=== PATIENT | male | born 1980 | race Two or more races ===

== ENCOUNTER 2021-01-25 19:05 | Outpatient (CLI) | payer OTHER | END 2021-01-25 19:06 | disposition critical access hospital (66) | LOC: EMS 19:05 | DX: R55 Syncope and collapse (principal); R07.9 Chest pain, unspecified | CPT/HCPCS: A0425; A0429 ==

== ENCOUNTER 2021-01-25 19:16 | Emergency (ER) | payer OTHER ==
[2021-01-25 20:08] LABS: BASOPHILS # (AUTO) 0.1 10^3/uL (0.0-0.1); BASOPHILS % (AUTO) 0.8 %; EOSINOPHILS # (AUTO) 0.2 10^3/uL (0.0-0.7); EOSINOPHILS % (AUTO) 2.9 %; HCT - HEMATOCRIT 42.2 % (42.0-52.0); HGB - HEMOGLOBIN 14.4 g/dL (14.0-18.0); LYMPHOCYTES # (AUTO) 2.3 10^3/uL (1.5-3.5); LYMPHOCYTES % (AUTO) 30.5 %; MEAN CORPUSCULAR HEMOGLOBIN 29.7 pg (27.0-31.0); MEAN CORPUSCULAR HGB CONC 34.1 g/dL (32.0-36.0); MEAN PLATELET VOLUME 10.6 fL (7.4-11.4); MONOCYTES # (AUTO) 0.7 10^3/uL (0.0-1.0); NEUTROPHILS # (AUTO) 4.3 10^3/uL (1.5-6.6); NEUTROPHILS % (AUTO) 56.5 %; PLT - PLATELET COUNT 178 10^3/uL (130-450); RED BLOOD COUNT 4.85 10^6/uL (4.70-6.10); RED CELL DISTRIBUTION WIDTH 12.1 % (12.0-15.0); WHITE BLOOD COUNT 7.6 x10^3/uL (4.8-10.8)
[2021-01-25] MEDS ORDERED: SODIUM CHLORIDE 0.9% 1,000 ML IV STA (20:19)
[2021-01-25] MEDS ORDERED: ONDANSETRON 4 MG/2 ML VIAL IVP STA (20:19)
[2021-01-25 20:26] LABS: ALBUMIN 4.4 g/dL (3.2-5.5); ALBUMIN/GLOBULIN RATIO 1.5 (1.0-2.2); BILIRUBIN,TOTAL 2.2 mg/dL (0.2-1.0); CALCIUM 8.9 mg/dL (8.5-10.3); POTASSIUM 3.8 mmol/L (3.5-5.0); TOTAL PROTEIN 7.3 g/dL (6.7-8.2)
--- NOTE | 2021-01-25 20:37 | XRAY Report ---
PROCEDURE: Chest 1 View X-Ray INDICATIONS: Chest pain TECHNIQUE: One view of the chest was acquired. COMPARISON: None FINDINGS: Surgical changes and devices: None. Lungs and pleura: No pleural effusions or pneumothorax. Lungs are clear. Mediastinum: Mediastinal contours appear normal. Heart size is at the upper limits of normal. Bones and chest wall: No suspicious bony lesions. Overlying soft tissues appear unremarkable. IMPRESSION: No acute pulmonary process. Reviewed by: Jaquelin Fernando MD on 01/25/2021 8:36 PM PDT Approved by: Jaquelin Fernando MD on 01/25/2021 8:36 PM PDT Station ID: [id number]
--- NOTE | 2021-01-25 21:41 | ED Physician Documentation ---
PD HPI CHEST PAIN - Stated complaint Stated Complaint: CP/ LIGHTHEADED/ DIZZY - Chief complaint Chief Complaint: Cardiac - History obtained from History obtained from: Patient - History of Present Illness Timing - onset: How many months ago (has had episodic chest pain, mostly associated with times of feeling stressed, for several months, even up to 9 months. More frequent the past month or so. today had feeling of chest pressure again but associated with it was nausea and lightheaded, which is not usual.) Timing - onset during: Light activity, Emotional event (not even upset really, just with feeling stress). No: Sleep, Rest Timing - duration: Minutes, Hours Timing - details: Gradual onset, Still present, Waxing and waning Quality: Tightness Location: Substernal Improved by: No: Rest Worsened by: No: Exertion, Inspiration, Eating, Movement Associated symptoms: Nausea, Feeling faint / dizzy. No: Shortness of air, Palpitations, Cough Similar symptoms before: No diagnosis Recently seen: Not recently seen Review of Systems Constitutional: denies: Fever, Chills Nose: denies: Rhinorrhea / runny nose, Congestion Throat: denies: Sore throat Respiratory: denies: Cough GI: reports: Nausea (today). denies: Abdominal Pain, Vomiting, Constipation, Diarrhea Neurologic: denies: Generalized weakness, Near syncope Psychiatric: reports: Anxiety. denies: Depressed, Insomnia (he says he sleeps well and does not snore much, was screened for CPAP with sleep study and did not need one.) PD PAST MEDICAL HISTORY - Past Medical History Cardiovascular: None Respiratory: None Neuro: None Endocrine/Autoimmune: None - Present Medications Home Medications: Ambulatory Orders Medication Instructions Recorded Confirmed Allopurinol [Zyloprim] 300 mg PO DAILY 01/25/21 01/25/21 - Allergies Allergies/Adverse Reactions: Allergies Allergy/AdvReac Type Severity Reaction Status Date / Time No Known Drug Allergies Allergy Verified 01/25/21 19:40 - Living Situation Living Situation: reports: With spouse/s.o. Living Arrangement: reports: At home - Social History Does the pt smoke?: No ETOH Use: Other (occasional) Does the pt have substance abuse?: No - Family History Family history: reports: CAD. denies: Sudden PD ED PE NORMAL - Vitals Vital signs reviewed: Yes - General General: Alert and oriented X 3, No acute distress, Well developed/nourished - HEENT HEENT: Moist mucous membranes - Neck Neck: Supple, no meningeal sign, Thyroid normal - Cardiac Cardiac: RRR, No murmur, No rub - Respiratory Respiratory: Clear bilaterally, Other (no chestwall tenderness) - Abdomen Abdomen: Soft, Non tender - Derm Derm: Normal color, Warm and dry - Extremities Extremities: Normal ROM s pain, No edema, No calf tenderness / cord - Neuro Neuro: Alert and oriented X 3, No motor deficit, Normal speech - Psych Psych: Normal mood, Normal affect Results - Vitals Vitals: Vital Signs - 24 hr 01/25/21 01/25/21 19:20 21:41 Temperature 36.5 C Heart Rate 77 74 Respiratory 16 16 Rate Blood Pressure 120/77 120/74 O2 Saturation 98 98 Oxygen O2 Source Room air - EKG (time done) 19:26 Rate: Rate (enter#) (78) Rhythm: NSR [place]: Normal Intervals: Normal RI QRS: Normal Ischemia: Normal ST segments. No: ST elevation c/w ischemia, ST depression - Labs Labs: Laboratory Tests 01/25/21 01/25/21 01/25/21 20:03 20:03 20:03 WBC 7.6 RBC 4.85 Hgb 14.4 Hct 42.2 MCV 87.0 MCH 29.7 MCHC 34.1 RDW 12.1 Plt Count 178 MPV 10.6 Neut # (Auto) 4.3 Lymph # (Auto) 2.3 [place] # (Auto) 0.7 Eos # (Auto) 0.2 Baso # (Auto) 0.1 Absolute Nucleated RBC 0.00 Nucleated RBC % 0.0 Sodium 137 Potassium 3.8 Chloride 101 Carbon Dioxide 27 Anion Gap 9.0 BUN 18 Creatinine 1.0 Estimated GFR (MDRD) 82 L Glucose 95 Calcium 8.9 Total Bilirubin 2.2 H AST 58 H ALT 61 H Alkaline Phosphatase 34 L Troponin I High Sens 3.4 Total Protein 7.3 Albumin 4.4 Globulin 2.9 Albumin/Globulin Ratio 1.5 Lipase 41 TSH 01/25/21 20:03 WBC RBC Hgb Hct MCV MCH MCHC RDW Plt Count MPV Neut # (Auto) Lymph # (Auto) [place] # (Auto) Eos # (Auto) Baso # (Auto) Absolute Nucleated RBC Nucleated RBC % Sodium Potassium Chloride Carbon Dioxide Anion Gap BUN Creatinine Estimated GFR (MDRD) Glucose Calcium Total Bilirubin AST ALT Alkaline Phosphatase Troponin I High Sens Total Protein Albumin Globulin Albumin/Globulin Ratio Lipase TSH 1.24 - Rads (name of study) chest xray Radiology: Prelim report reviewed, See rad report (no acute process) PD MEDICAL DECISION MAKING - ED course Complexity details: considered differential (consider treatment for anxiety/stress but defer to PMD. He has tried some SSRIs in the past with side effects. Defer to PMD for possible stress testing, but has had nonexertional CP episodes for long time. ), d/w patient Departure - Departure Disposition: Home, Self Care Clinical Impression: Chest pressure, Light-headed feeling Condition: Stable Record reviewed to determine appropriate education?: Yes Instructions: ED Chest Pain Atypical Unkn Cause Comments: The cause of your chest tightness. It may be just an anxiety symptom. Currently your EKG, chest x-ray, blood tests including troponin to look for heart injury are all normal. The pattern of your symptoms sound likely stress related. I would follow-up with your primary care and they may consider for completeness to do heart stress test to ensure no flow limitation though your symptoms have not been exertionally related. Also discussed with your primary care other potential treatments for anxiety longer-term. Discharge Date/Time: 01/25/21 21:41
[2021-01-25 22:18] VITALS: BP 120/74
== END 2021-01-25 21:41 | disposition home or self-care (01) ==
LOC: ED 19:16
DX: R07.89 Other chest pain (principal); R42 Dizziness and giddiness; F41.9 Anxiety disorder, unspecified; F43.9 Reaction to severe stress, unspecified
CPT/HCPCS: 36415; 80053; 83690; 84443; 84484; 85025; 93005; 96360; 99284

== ENCOUNTER 2021-01-27 19:47 | Emergency (ER) | payer OTHER ==
[2021-01-27 20:44] LABS: BASOPHILS # (AUTO) 0.1 10^3/uL (0.0-0.1); BASOPHILS % (AUTO) 0.9 %; EOSINOPHILS # (AUTO) 0.3 10^3/uL (0.0-0.7); EOSINOPHILS % (AUTO) 4.3 %; HCT - HEMATOCRIT 46.2 % (42.0-52.0); HGB - HEMOGLOBIN 15.8 g/dL (14.0-18.0); LYMPHOCYTES # (AUTO) 2.7 10^3/uL (1.5-3.5); LYMPHOCYTES % (AUTO) 34.3 %; MEAN CORPUSCULAR HEMOGLOBIN 29.6 pg (27.0-31.0); MEAN CORPUSCULAR HGB CONC 34.2 g/dL (32.0-36.0); MEAN CORPUSCULAR VOLUME 86.7 fL (80.0-94.0); MEAN PLATELET VOLUME 10.8 fL (7.4-11.4); MONOCYTES # (AUTO) 0.6 10^3/uL (0.0-1.0); MONOCYTES % (AUTO) 7.2 %; NEUTROPHILS # (AUTO) 4.1 10^3/uL (1.5-6.6); PLT - PLATELET COUNT 181 10^3/uL (130-450); RED BLOOD COUNT 5.33 10^6/uL (4.70-6.10); RED CELL DISTRIBUTION WIDTH 12.2 % (12.0-15.0); WHITE BLOOD COUNT 7.8 x10^3/uL (4.8-10.8)
[2021-01-27 20:59] LABS: ACETAMINOPHEN < 10 ug/mL (10-30); ALBUMIN 4.6 g/dL (3.2-5.5); ALBUMIN/GLOBULIN RATIO 1.4 (1.0-2.2); ALKALINE PHOSPHATASE 36 IU/L (42-121); ALT ALANINE AMINOTRANSFERASE 61 IU/L (10-60); AST ASPARTATE AMINOTRANSFERASE 57 IU/L (10-42); BILIRUBIN,TOTAL 2.1 mg/dL (0.2-1.0); BUN - BLOOD UREA NITROGEN 13 mg/dL (6-20); CALCIUM 9.2 mg/dL (8.5-10.3); CARBON DIOXIDE - CO2 29 mmol/L (21-32); CHLORIDE 104 mmol/L (101-111); CREATININE 1.1 mg/dL (0.6-1.2); ETOH - ETHANOL 6.3 mg/dL; GFR - MDRD 73 (>89); GLUCOSE 108 mg/dL (70-100); LIPASE 58 U/L (22-51); POTASSIUM 4.4 mmol/L (3.5-5.0); SALICYLATE < 6.0 mg/dL; SODIUM 143 mmol/L (135-145); TOTAL PROTEIN 7.9 g/dL (6.7-8.2)
[2021-01-27 22:01] VITALS: BP 110/78
[2021-01-27 22:14] LABS: MUDS CUTOFF CONCENTRATIONS CUTOFF CONC BELOW:
[2021-01-27 22:17] LABS: BILIRUBIN,URINE NEGATIVE (NEGATIVE); CLARITY,URINE CLEAR (CLEAR); GLUCOSE, URINE (UA) NEGATIVE (NEGATIVE); KETONES,URINE (UA) TRACE mg/dL (NEGATIVE); LEUKOCYTE ESTERASE, URINE NEGATIVE (NEGATIVE); NITRITE,URINE NEGATIVE (NEGATIVE); OCCULT BLOOD,URINE NEGATIVE (NEGATIVE); PROTEIN,URINE NEGATIVE (NEGATIVE); UROBILINOGEN,URINE >=8.0 E.U./dL (NORMAL)
[2021-01-27 22:27] LABS: AMPHETAMINE SCREEN,URINE NEGATIVE (NEGATIVE); BARBITURATE SCREEN,UR NEGATIVE (NEGATIVE); BENZODIAZEPINES SCREEN, URINE NEGATIVE (NEGATIVE); COCAINE SCREEN URINE NEGATIVE (NEGATIVE); METHADONE SCREEN, URINE NEGATIVE (NEGATIVE); METHAMPHETAMINES SCREEN, URINE NEGATIVE (NEGATIVE); OPIATE SCREEN, URINE NEGATIVE (NEGATIVE); OXYCODONE SCREEN, URINE NEGATIVE (NEGATIVE); PROPOXYPHENE SCREEN, URINE NEGATIVE (NEGATIVE); THC CANNABINOID SCREEN, URINE NEGATIVE (NEGATIVE); TRICYCLIC ANTIDEPRESSANT,URINE NEGATIVE (NEGATIVE)
--- NOTE | 2021-01-27 22:28 | ED Physician Documentation ---
PD HPI MHE - Stated complaint Stated Complaint: MHE - Chief complaint Chief Complaint: MHE - History obtained from History obtained from: Patient - History of Present Illness Primary symptom: Depression Recently seen: Clinic, Emergency Dept - Additional information Additional information: seen by PMD earlier today for feelings of depression and anxiety, was prescribed an antidepressant (not sure of name of medication) and took his first dose today at 6 PM. He says he has a counselor, as well, but that he and his were concerned that he is "stuck in a loop" (per patient) of cycles of depression and anxiety and thus he came to ED for further evaluation. He says one of his concerns was how long it might take for him to arrange for outpatient follow up. He denies SI, AH, VH. Review of Systems Cardiac: reports: Reviewed and negative Respiratory: reports: Reviewed and negative GI: reports: Reviewed and negative Psychiatric: reports: Depressed, Anxiety. denies: Suicidal, Homicidal, Hallucinations, Delusions PD PAST MEDICAL HISTORY - Past Medical History Past Medical History: Yes Cardiovascular: None Respiratory: None Neuro: None Endocrine/Autoimmune: None Psych: Depression, Anxiety - Past Surgical History Past Surgical History: No - Present Medications Home Medications: Ambulatory Orders Medication Instructions Recorded Confirmed Allopurinol [Zyloprim] 300 mg PO DAILY 01/25/21 01/27/21 Escitalopram Oxalate [Lexapro] 10 mg PO DAILY 01/27/21 01/27/21 - Allergies Allergies/Adverse Reactions: Allergies Allergy/AdvReac Type Severity Reaction Status Date / Time No Known Drug Allergies Allergy Verified 01/27/21 20:11 - Social History Does the pt smoke?: No Smoking Status: Never smoker Does the pt drink ETOH?: Yes Does the pt have substance abuse?: No - Immunizations Immunizations are current?: Yes PD ED PE NORMAL - Vitals Vital signs reviewed: Yes - General General: Alert and oriented X 3, No acute distress, Well developed/nourished - Cardiac Cardiac: RRR, No murmur - Respiratory Respiratory: No respiratory distress, Clear bilaterally - Neuro Neuro: Alert and oriented X 3 - Psych Psych: Normal mood, Normal affect Results - Vitals Vitals: Oxygen O2 Source Room air - Labs Labs: Laboratory Tests 01/27/21 01/27/21 01/27/21 20:35 20:35 20:35 WBC 7.8 RBC 5.33 Hgb 15.8 Hct 46.2 MCV 86.7 MCH 29.6 MCHC 34.2 RDW 12.2 Plt Count 181 MPV 10.8 Neut # (Auto) 4.1 Lymph # (Auto) 2.7 [place] # (Auto) 0.6 Eos # (Auto) 0.3 Baso # (Auto) 0.1 Absolute Nucleated RBC 0.00 Nucleated RBC % 0.0 Sodium 143 Potassium 4.4 Chloride 104 Carbon Dioxide 29 Anion Gap 10.0 BUN 13 Creatinine 1.1 Estimated GFR (MDRD) 73 L Glucose 108 H Calcium 9.2 Total Bilirubin 2.1 H AST 57 H ALT 61 H Alkaline Phosphatase 36 L Total Protein 7.9 Albumin 4.6 Globulin 3.3 Albumin/Globulin Ratio 1.4 Lipase 58 H TSH 1.28 Urine Color Urine Clarity Urine pH Ur Specific [place] Urine Protein Urine Glucose (UA) Urine Ketones Urine Occult Blood Urine Nitrite Urine Bilirubin Urine Urobilinogen Ur Leukocyte Esterase Ur Microscopic Review Urine Culture Comments Salicylates < 6.0 Urine Opiates Screen Ur Oxycodone Screen Urine Methadone Screen Ur Propoxyphene Screen Acetaminophen < 10 L Ur Barbiturates Screen Ur Tricyclics Screen Ur Phencyclidine Scrn Ur Amphetamine Screen U Methamphetamines Scrn U Benzodiazepines Scrn Urine Cocaine Screen U Cannabinoids Screen Ethyl Alcohol 6.3 01/27/21 22:10 WBC RBC Hgb Hct MCV MCH MCHC RDW Plt Count MPV Neut # (Auto) Lymph # (Auto) [place] # (Auto) Eos # (Auto) Baso # (Auto) Absolute Nucleated RBC Nucleated RBC % Sodium Potassium Chloride Carbon Dioxide Anion Gap BUN Creatinine Estimated GFR (MDRD) Glucose Calcium Total Bilirubin AST ALT Alkaline Phosphatase Total Protein Albumin Globulin Albumin/Globulin Ratio Lipase TSH Urine Color YELLOW Urine Clarity CLEAR Urine pH 7.0 Ur Specific [place] 1.020 Urine Protein NEGATIVE Urine Glucose (UA) NEGATIVE Urine Ketones TRACE Urine Occult Blood NEGATIVE Urine Nitrite NEGATIVE Urine Bilirubin NEGATIVE Urine Urobilinogen >=8.0 H Ur Leukocyte Esterase NEGATIVE Ur Microscopic Review NOT INDICATED Urine Culture Comments NOT INDICATED Salicylates Urine Opiates Screen NEGATIVE Ur Oxycodone Screen NEGATIVE Urine Methadone Screen NEGATIVE Ur Propoxyphene Screen NEGATIVE Acetaminophen Ur Barbiturates Screen NEGATIVE Ur Tricyclics Screen NEGATIVE Ur Phencyclidine Scrn NEGATIVE Ur Amphetamine Screen NEGATIVE U Methamphetamines Scrn NEGATIVE U Benzodiazepines Scrn NEGATIVE Urine Cocaine Screen NEGATIVE U Cannabinoids Screen NEGATIVE Ethyl Alcohol PD MEDICAL DECISION MAKING - ED course Complexity details: reviewed old records (T+R from this ED for chest pain 2 days ago), considered differential, d/w patient ED course: patient strongly denies SI. he has normal affect and mood on my H+P. I discussed options from ED standpoint, including SW consult (although this would not be available until morning) and telepsychiatry consult (also reviewed that this would necessitate blood tests and urinalysis before being able to submit request for the consult). I also discussed with patient that most antidepressants require 1-2 weeks minimum before noticeable effects can be expected. He declines the services we discussed at this time. He feels safe being discharged, will return if he feels he needs to be reevaluated at any time, and will follow up with his counselor as soon as can be arranged. Departure - Departure Disposition: 01 Home, Self Care Clinical Impression: Anxiety Depression Qualifiers: Depression Type: unspecified Qualified Code(s): F32.9 - Major depressive disorder, single episode, unspecified Condition: Good Instructions: ED Depression Discharge Date/Time: 01/27/21 22:48
== END 2021-01-27 22:48 | disposition home or self-care (01) ==
LOC: ED 19:47
DX: F41.9 Anxiety disorder, unspecified (principal); F32.9 Major depressive disorder, single episode, unspecified
CPT/HCPCS: 36415; 80053; 80306; 80307; 80320; 80329; 81001; 81003; 83690; 84443; 85025; 87086; 99283

== ENCOUNTER 2023-02-25 05:15 | Emergency (ER) | payer OTHER ==
[2023-02-25] MEDS ORDERED: LIDOCAINE VISCOUS 2% 15 ML ORAL SYRINGE MM STA (06:07)
[2023-02-25] MEDS ORDERED: MAG HYDROX/AL HYDROX/SIMETH 30 ML UDC PO STA (06:07)
[2023-02-25] MEDS ORDERED: SUCRALFATE 1 GM/10 ML UDC PO STA (06:07)
[2023-02-25] MEDS ORDERED: FAMOTIDINE 20 MG TABLET PO STA (06:07)
[2023-02-25 06:09] LABS: BASOPHILS # (AUTO) 0.1 10^3/uL (0.0-0.1); BASOPHILS % (AUTO) 1.4 %; EOSINOPHILS # (AUTO) 0.3 10^3/uL (0.0-0.7); EOSINOPHILS % (AUTO) 5.5 %; HGB - HEMOGLOBIN 14.9 g/dL (14.0-18.0); LYMPHOCYTES # (AUTO) 1.9 10^3/uL (1.5-3.5); LYMPHOCYTES % (AUTO) 37.4 %; MEAN CORPUSCULAR HEMOGLOBIN 29.9 pg (27.0-31.0); MEAN CORPUSCULAR HGB CONC 33.9 g/dL (32.0-36.0); MEAN CORPUSCULAR VOLUME 88.2 fL (80.0-94.0); MEAN PLATELET VOLUME 10.4 fL (7.4-11.4); MONOCYTES # (AUTO) 0.6 10^3/uL (0.0-1.0); MONOCYTES % (AUTO) 12.8 %; NEUTROPHILS # (AUTO) 2.1 10^3/uL (1.5-6.6); NEUTROPHILS % (AUTO) 42.5 %; PLT - PLATELET COUNT 168 10^3/uL (130-450); RED BLOOD COUNT 4.99 10^6/uL (4.70-6.10); RED CELL DISTRIBUTION WIDTH 12.3 % (12.0-15.0); WHITE BLOOD COUNT 4.9 x10^3/uL (4.8-10.8)
--- NOTE | 2023-02-25 06:27 | ED Physician Documentation ---
PD HPI ABD PAIN - Stated complaint Stated Complaint: ABD PAIN - Chief complaint Chief Complaint: Abd Pain - History obtained from History obtained from: Patient - History of Present Illness Pain level max: 5 Pain level now: 3 Location: Epigastric Associated symptoms: No: Fever, Nausea, Vomiting, Hematemesis, Diarrhea, Constipation, Melena, Hematochezia - Additional information Additional information: Patient is a 42-year-old male who presents to the emergency department stating that he had epigastric pain this morning at 4:45 AM. He describes it as a dull, ache. Better with belching. Nothing seems to make it worse. He states he has had increased abdominal bloating over the past several days. The pain does not radiate. No nausea or vomiting. No diarrhea or constipation. Denies any history of GERD or ulcers. Does not use any NSAIDs. Does not drink significant alcohol. Review of Systems Constitutional: denies: Fever, Chills Nose: denies: Rhinorrhea / runny nose, Congestion GI: denies: Vomiting, Diarrhea, Hematemesis, Bloody / black stool : denies: Dysuria Skin: denies: Rash Musculoskeletal: denies: Neck pain, Back pain Neurologic: denies: Headache PD PAST MEDICAL HISTORY - Past Medical History Cardiovascular: None Respiratory: None Neuro: None Endocrine/Autoimmune: None Psych: Depression, Anxiety - Past Surgical History Past Surgical History: No - Present Medications Home Medications: Ambulatory Orders Medication Instructions Recorded Confirmed allopurinoL [Zyloprim] 300 mg PO DAILY 01/25/21 01/27/21 Escitalopram Oxalate [Lexapro] 10 mg PO DAILY 01/27/21 01/27/21 - Allergies Allergies/Adverse Reactions: Allergies Allergy/AdvReac Type Severity Reaction Status Date / Time No Known Drug Allergies Allergy Verified 01/27/21 20:11 - Social History Does the pt smoke?: No Smoking Status: Never smoker Does the pt drink ETOH?: Yes Does the pt have substance abuse?: No - Immunizations Immunizations are current?: Yes PD ED PE NORMAL - Vitals Vital signs reviewed: Yes - General General: Alert and oriented X 3, No acute distress - HEENT HEENT: PERRL, Moist mucous membranes - Neck Neck: Supple, no meningeal sign - Cardiac Cardiac: RRR, Strong equal pulses - Respiratory Respiratory: Clear bilaterally - Abdomen Abdomen: Normal bowel sounds, Soft, Non distended, Other (Tender to palpation epigastric without peritoneal signs. No right upper quadrant tenderness. Negative Musa sign. Otherwise benign abdominal exam.) - Back Back: No CVA TTP, No spinal TTP - Derm Derm: Warm and dry - Extremities Extremities: No edema, No calf tenderness / cord - Neuro Neuro: Alert and oriented X 3 - Psych Psych: Normal mood, Normal affect Results - Vitals Vitals: Vital Signs - 24 hr 02/25/23 02/25/23 05:31 05:33 Temperature 35.8 C L Heart Rate 68 68 Respiratory 17 17 Rate Blood Pressure 127/89 H 127/89 H O2 Saturation 97 97 Oxygen O2 Source Room air - Labs Labs: Laboratory Tests 02/25/23 02/25/23 06:04 06:04 WBC 4.9 RBC 4.99 Hgb 14.9 Hct 44.0 MCV 88.2 MCH 29.9 MCHC 33.9 RDW 12.3 Plt Count 168 MPV 10.4 Neut # (Auto) 2.1 Lymph # (Auto) 1.9 [place] # (Auto) 0.6 Eos # (Auto) 0.3 Baso # (Auto) 0.1 Absolute Nucleated RBC 0.00 Nucleated RBC % 0.0 Sodium 139 Potassium 4.4 Chloride 104 Carbon Dioxide 29 Anion Gap 6.0 BUN 12 Creatinine 1.1 Estimated GFR (MDRD) 73 L Glucose 134 H Calcium 8.7 Total Bilirubin 1.4 H AST 94 H ALT 67 H Alkaline Phosphatase 35 L Total Protein 7.8 Albumin 4.3 Globulin 3.5 Albumin/Globulin Ratio 1.2 Lipase 46 PD Medical Decision Making - ED course Complexity details: reviewed results, re-evaluated patient, considered differential, d/w patient ED course: Patient is a 42-year-old male with epigastric abdominal pain. No significant findings on laboratory testing. He has mild chronic elevation of his liver function test. No right upper quadrant abdominal pain on exam. He feels unchanged after GI cocktail. A CT scan will be ordered. Patient will be signed out to the oncoming emergency department physician awaiting CT scan results. Suspect that if the CT scan is negative, patient can likely be discharged home with H2 ivelisse/PPI and treated for GERD. Please see Dr. Gonzales's note for final disposition. This document was made in part using voice recognition software. While efforts are made to proofread this document, sound alike and grammatical errors may occur. Departure - Departure Clinical Impression: Abdominal pain Qualifiers: Abdominal location: epigastric Qualified Code(s): R10.13 - Epigastric pain Condition: Stable
[2023-02-25 06:29] LABS: ALBUMIN 4.3 g/dL (3.2-5.5); ALBUMIN/GLOBULIN RATIO 1.2 (1.0-2.2); BILIRUBIN,TOTAL 1.4 mg/dL (0.2-1.0); CALCIUM 8.7 mg/dL (8.5-10.3); CREATININE 1.1 mg/dL (0.6-1.2); POTASSIUM 4.4 mmol/L (3.5-5.0); TOTAL PROTEIN 7.8 g/dL (6.7-8.2)
--- NOTE | 2023-02-25 07:43 | CT Report ---
PROCEDURE: ABDOMEN/PELVIS W INDICATIONS: epigastric pain CONTRAST: 100ml omni 350 TECHNIQUE: After the administration of IV contrast, 5 mm thick sections acquired from the diaphragms to the symp hysis. 5 mm thick coronal and sagittal reformats were acquired. For radiation dose reduction, the f ollowing was used: automated exposure control, adjustment of mA and/or kV according to patient size. COMPARISON: FINDINGS: Image quality: Excellent. Lung bases and heart: Unremarkable. Liver: No solid mass. Hepatic steatosis is seen. Gallbladder and biliary tree: Gallbladder is within normal limits. No biliary ductal dilatation. Spleen: No splenomegaly. Pancreas: No pancreatic ductal dilation. Adrenals: No adrenal nodule. Kidneys and ureters: No hydronephrosis. No renal cystic lesion which requires follow up. No solid mas s. Bowel and peritoneum: No bowel distension. No pathologic free fluid. Appendix is visualized and is wi thin normal limits. No abscess collection. No peritoneal free air. Lymph nodes: No central or retroperitoneal adenopathy. Vessels: No infrarenal aortic aneurysm. PELVIS Reproductive organs: Unremarkable. Bladder: No abnormal wall thickening, accounting for underdistension. Pelvic lymph nodes: No pelvic adenopathy by size criteria. Bones: No aggressive osseous abnormality. Other: No significant ventral or inguinal hernia. IMPRESSION: 1. No acute inflammatory process is seen in abdomen or pelvis. No bowel obstruction or abnormal bowel wall thickening. Normal appendix. 2. Moderate hepatic steatosis, no discrete hepatic lesion. Normal-appearing gallbladder. No biliary d uctal dilatation. 3. No renal stones or hydronephrosis. Reviewed by: Rene Woo MD on 02/25/2023 7:42 AM PDT Approved by: Rene Woo MD on 02/25/2023 7:42 AM PDT Station ID: [id number]
[2023-02-25 07:52] LABS: BILIRUBIN,URINE NEGATIVE (NEGATIVE); GLUCOSE, URINE (UA) NEGATIVE (NEGATIVE); KETONES,URINE (UA) NEGATIVE (NEGATIVE); LEUKOCYTE ESTERASE, URINE NEGATIVE (NEGATIVE); NITRITE,URINE NEGATIVE (NEGATIVE); OCCULT BLOOD,URINE NEGATIVE (NEGATIVE); PH,URINE 6.5 PH (5.0-7.5); PROTEIN,URINE NEGATIVE (NEGATIVE); UROBILINOGEN,URINE 0.2 (NORMAL) E.U./dL (NORMAL)
[2023-02-25 07:55] LABS: CLARITY,URINE CLEAR (CLEAR)
--- NOTE | 2023-02-25 08:18 | ED Physician Documentation ---
ED Addendum - Addendum Addendum: 02/25/23 08:16 The patient is comfortable here in the ER. I talked with them after change of shift and after his CT scan. The patient has known fatty liver and mild elevation of LFTs. His labs are around baseline level of elevation today. Lipase is normal. White count is normal. His CT scan showed the known fatty liver. Otherwise no acute abnormalities. He does describe symptoms of gassiness and bloating some discomfort mostly in the upper abdomen last night and today. He has been having some general gassiness. He has not noticed it associated with any particular food types. He does not drink alcohol. He has a lot of coffee. It was suggested to perhaps go with some acid reducing type medications such as famotidine or Prilosec. He would get these [id number]. On the patient discharged in stable condition.
[2023-02-25 08:26] VITALS: BP 131/94
== END 2023-02-25 08:23 | disposition home or self-care (01) ==
LOC: ED 05:15
DX: R10.13 Epigastric pain (principal)
CPT/HCPCS: 36415; 74177; 80053; 81003; 83690; 85025; 99283; 99284; A9270; Q9967; 81001; 87086

== ENCOUNTER 2024-01-29 12:55 | Outpatient (CLI) | payer OTHER ==
--- NOTE | 2024-01-29 22:17 | SLEEP CARE CONSULTATION ---
Information from patient questionnaire entered by Michaelle May. I have reviewed and concur with the information entered by Michaelle May. This document represents the service I personally performed and the decisions made by me, Denis Hernandez MD, [facility]. History of Present Illness Service Date and Time: 01/29/2024 1255 Reason for Visit: New patient Chief Complaint: reports: Insomnia, Unrefreshed sleep, Snoring, Excessive daytime sleepiness, Observed pauses in breathing, Fatigue, Frequent awakenings at night, Other (UPDATE COTA[[LIES) Date of Onset: 2-2.5WEEKS SINCE CPAP WENT OUT Usual bedtime: 2330 Time it takes to fall asleep: IMMEDIATLY Snores at night: Yes Observed to quit breathing while asleep: Yes Sleeps alone due to snoring: Yes Number of times waking at night: 2-3 Reasons for waking at night: reports: Choking, Snoring, Gasping for air, [place] m, Other (NOISE) Toss, Turn, or Twitch while sleeping: Yes Recalls having dreams: Yes Usually gets out of bed at: 0645 Feels refreshed in the morning: No Morning headache: Yes ([id number]) Sleepy or fatigued during the day: Yes Ever fallen asleep while driving: Yes Takes day naps: Yes Dreams during day naps: Yes Prior sleep studies: Yes Additional HPI information: I had the pleasure of seeing Mr. Noguera today regarding obstructive sleep apnea-hypopnea. As you know, he is a 44-year-old gentleman who was originally diagnosed with the sleep-disordered breathing in [place] in 2009. He used a CPAP for many years. In 2014 he had a home sleep apnea test (HSAT) that was negative. This made him not eligible for supplies. He had another negative HSAT in 2017. He kept on using his CPAP until it broke a year ago. Without his CPAP, he woke up gasping for air with his heart racing. He had to sleep sitting up. Just recently, a friend gave him a CPAP to use. It is set on 13 cmH2O. He wears a nasal mask. 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 Patient is and lives in [place]. Have you smoked in the past 12 months: No Alcohol use: Yes Alcohol amount and frequency: 1 GLASS LESS THAN 1X/MANTH Caffeine use: Yes Caffeine amount and frequency: 1-3 CUPS DAILY Family History Family history of sleep disordered breathing: Yes Family Hx Sleep Apnea: Father: Snoring, Sibling: Snoring, Sleep apnea - Treated Allergies and Home Medications Known drug allergies: No Drug allergies reviewed: Yes Home medication list reviewed: Yes Allergy and home medication list: Allergies No Known Drug Allergies Allergy (Verified 01/25/24 08:44) Review of Systems Weight gain over past 5 years: 20 Cardiovascular: reports: have to sleep sitting up Respiratory: reports: shortness of breath, wheeze, sputum production Gastrointestinal: reports: nausea Neurological: reports: headaches Psychiatric: reports: Attention Deficit Hyperactivity, anxiety, depression Ear/Nose/Throat: reports: nasal congestion, sinus problems, dry mouth/throat, hoarseness Endocrine: reports: sluggishness, increased appetite, increased urination, unexplained weakness Musculoskeletal: reports: neck pain, muscle pain or cramping Immunologic: denies: sneezing, rash, itching, allergies to food or environment, other Physical Exam Vital signs obtained and entered by: MICHAELLE Arita MA Blood Pressure: 121/85 (RIGHT ARM) Cuff size: long Heart Rate: 89 O2 Saturation: 98 Height: 5 ft 10.5 in Weight: 285 lb 9.6 oz Body Mass Index: 40.4 BMI Classification: Morbidly Obese Neck circumference: 20.5 Mood/affect: Normal HEENT: No craniofacial malformation Nostrils: patent to airflow Turbinates: normal Septum: midline Mouth and throat: narrow oropharynx Soft palate: long Hard palate: normal Uvula: normal Uvula visualization: 25% Mallampati Class III Tongue: normal in size Tonsils: small Chin and jaw: normal size and position Neck: normal w/o lymphadenopathy or thyromegaly Heart: regular rate and rhythm Lungs: clear bilaterally Extremities: no edema or clubbing Neurologic: intact Impression and Plan IMPRESSION: 1. Obstructive Sleep Apnea-Hypopnea Syndrome, as previously diagnosed but unable to continue the treatment because of two negative home sleep apnea tests. HSATs could have been negative because he used his CPAP the night before the test and did not sleep much during the test. Narrow oropharynx and obesity are common predisposing factors for obstructive sleep apnea- hypopnea syndrome. Therefore, in order to make an accurate diagnosis, an in- laboratory polysomnography is necessary. Plan: 1. Schedule polysomnography and return in 1 to 2 weeks after the study to discuss result and initiate therapy. 2. Avoid long distance driving or when feeling sleepy. 3. Avoid alcohol, sedative and muscle relaxant around bedtime. 4. Attempt to lose weight. Counseling Topics: Weight control Follow up with Sleep Care in: 1-2 months Follow up recommended for: Weight management Visit Type: In Office Time Spent with Patient (minutes): 15 Provider Statement: I spent 100% of the Face to Face Visit with the patient with greater than 50% spent counseling the patient and coordination of care.
[2024-01-29 22:18] VITALS: BP 121/85; O2SAT 98
== END 2024-01-29 12:56 | disposition home or self-care (01) ==
LOC: SC 12:55
PROVIDERS: ATTEND Internal Medicine Pulmonary Disease
DX: G47.33 Obstructive sleep apnea (adult) (pediatric) (principal); E66.01 Morbid (severe) obesity due to excess calories; Z68.41 Body mass index [BMI] 40.0-44.9, adult
CPT/HCPCS: 99202; 99212

== ENCOUNTER 2024-03-09 20:31 | Outpatient (CLI) | payer OTHER | END 2024-03-09 20:32 | disposition home or self-care (01) | LOC: SC 20:31 | PROVIDERS: ATTEND Internal Medicine Pulmonary Disease | DX: G47.33 Obstructive sleep apnea (adult) (pediatric) (principal) | CPT/HCPCS: 95810 ==

== ENCOUNTER 2024-04-15 13:47 | Outpatient (CLI) | payer OTHER ==
--- NOTE | 2024-04-15 14:13 | SLEEP CARE CONSULTATION ---
Information from patient questionnaire entered by Michaelle May. I have reviewed and concur with the information entered by Michaelle May. This document represents the service I personally performed and the decisions made by me, Denis Hernandez MD, [facility]. History of Present Illness Service Date and Time: 04/15/2024 1347 Initial [place] Sleepiness Scale score: 19 (01/08/24) Current [place] Sleepiness Scale score: 14 (04/15/24) Additional HPI information: Mr. Noguera returned for follow up of the sleep study he had on 03/09/24. The polysomnography showed that The patient had normal sleep efficiency. The sleep architecture was abnormal for sleep fragmentation and reduced amount of time spent in slow wave sleep (N3). Respiratory monitoring showed moderate obstructive sleep apnea-hypopnea (AHI = 20.4) associated with frequent arousals, oxyhemoglobin desaturation and mild hypoxia (tod oxygen saturation of 85%). The respiratory events occurred more frequently during supine sleep (supine AHI = 32.1; non-supine = 16.06). Snore was light to loud in intensity. There was no significant periodic leg movement of sleep. Cardiac rhythm was normal sinus rhythm without significant arrhythmia. No abnormal behavior (parasomnia) observed during the night. The patient was informed of these findings. I explained to him the pathophysiology behind obstructive sleep apnea. We then spent quite a bit of time discussing different treatment options. For mild obstructive sleep apnea, surgery and oral appliance are alternatives to nasal CPAP therapy but in moderate or severe cases, nasal CPAP is the most effective and reliable treatment. Weight loss in an obese individual is strongly recommended. After some discussion, he opted to go with the nasal CPAP therapy. He has used a CPAP for many years. His old machine was set at 13 cmH2O. Sleep Study - Results Type of Sleep Study: Polysomnography (COMPLETED 03/09/24) Prior sleep studies: Yes Allergies and Home Medications Drug allergies reviewed: Yes Home medication list reviewed: Yes Allergy and home medication list: Allergies No Known Drug Allergies Allergy (Verified 04/11/24 11:35) Review of Systems Review of systems same as previous: Yes (NO CHANGE) Physical Exam Vital signs obtained and entered by: MICHAELLE Arita MA Blood Pressure: 119/82 (LEFT ARM) Cuff size: long Heart Rate: 73 O2 Saturation: 99 Height: 5 ft 10.5 in Weight: 290 lb 9.6 oz Body Mass Index: 41.1 BMI Classification: Morbidly Obese Impression and Plan IMPRESSION: 1. Obstructive Sleep Apnea-Hypopnea Syndrome, moderate, associated with mild hypoxemia and sleep fragmentation. Obviously, this is the cause of the patients symptoms of unrefreshed sleep, and excessive daytime sleepiness. As mentioned above, the patient will be started on an autoCPAP set between 10 and 15 cmH2O. Depending on his response and compliance he may be brought back for an overnight CPAP titration study. PLAN: 1. Prescription made for an autoCPAP, heated humidifier, and related supplies through [employer]. 2. Attempt to lose weight and avoid alcohol consumption near bedtime. 3. Return for follow up after one month of using the CPAP. Counseling Topics: Weight control Prescriptions: Auto CPAP Follow up with Sleep Care in: 1-2 months Visit Type: In Office Time Spent with Patient (minutes): 15 Provider Statement: I spent 100% of the Face to Face Visit with the patient with greater than 50% spent counseling the patient and coordination of care.
[2024-04-15 14:20] VITALS: BP 119/82; O2SAT 99
== END 2024-04-15 13:48 | disposition home or self-care (01) ==
LOC: SC 13:47
PROVIDERS: ATTEND Internal Medicine Pulmonary Disease
DX: G47.33 Obstructive sleep apnea (adult) (pediatric) (principal); E66.01 Morbid (severe) obesity due to excess calories; Z68.41 Body mass index [BMI] 40.0-44.9, adult
CPT/HCPCS: 99212

== ENCOUNTER 2024-06-19 16:12 | Outpatient (CLI) | payer OTHER ==
--- NOTE | 2024-06-19 16:45 | Sleep Patient Instructions ---
Sleep Center Visit Summary - Patient Visit Information Reason for Visit: First compliance follow-up for PAP therapy - Patient Instructions Additional Instructions: You were here for follow up of CPAP therapy. You will be continued on CPAP therapy with pressure at 10-15 cmH2O. You should follow up with sleep care in 12 months. You may contact us sooner for any questions or concerns. - Clinic Information Contact: [facility] [address] [place] [email or web address] T: [phone]
--- NOTE | 2024-06-19 16:51 | SLEEP CARE CONSULTATION ---
Information from patient questionnaire entered by Ariana Hinkle. I have reviewed and concur with the information entered by Ariana Hinkle. This document represents the service I personally performed and the decisions made by , Suzie Jason ARNP. History of Present Illness Service Date and Time: 06/19/2024 1612 Previous diagnosis: Moderate, Obstructive Sleep Apnea-Hypopnea Syndrome AHI: 20.4 (03/09/24) Reason for follow up: first compliance (1st compliance, set up 05/02 on a Resmed), first compliance after device update Equipment type: CPAP (Resmed Airsense 11, s/u 04/30/24) Equipment obtained from: Other ([facility]; getting supplies) Mask style: Full face ([place] full) Backup mask available: No Last cushion change: month or so Prior sleep studies: Yes Type of Sleep Study: Polysomnography (COMPLETED 03/09/24) HPI additional information: SULLY ESCOBAR was diagnosed to have moderate, AHI 20.4, obstructive sleep apnea-hypopnea syndrome and returned today for CPAP therapy first compliance after device update follow-up. Sleep Study - Results Type of Sleep Study: Polysomnography (COMPLETED 03/09/24) Prior sleep studies: Yes CPAP Compliance Data - Data Reviewed with Patient Average duration of nightly device use: 7 h 50 mins Compliance rate %: 97 (04/30/24-05/29/24; 29/30 days used) Current pressure setting (cmH2O): 10 - 15 Average residual AHI: 0.3 Central apnea: 0 Obstructive apnea: 0.2 Hypopnea: 0.1 Average large leak: 13.8 L/min Subjective Patient concerns: reports: mask leak noise (Mask leaks have improved), condensation in mask/hose, other (Snore while using device). denies: aerophagia, mask discomfort, air blowing in eyes Observed to snore while using device: Yes (little bit, better than it was) Current pressure setting perceived as: comfortable On therapy, patient: reports: sleeping better, awakening more refreshed, being more awake and alert during the day, more rested overall. denies: drowsiness while driving Initial [place] Sleepiness Scale score: 19 (01/08/24) Current [place] Sleepiness Scale score: 5 (06/19/24) Allergies and Home Medications Known drug allergies: No Drug allergies reviewed: Yes Home medication list reviewed: Yes (as listed) Allergy and home medication list: Allergies No Known Drug Allergies Allergy Review of Systems Review of systems same as previous: No (diabetes type 2) Physical Exam Vital signs obtained and entered by: Suzie Lora NP Blood Pressure: 133/85 Cuff size: long (left arm) Heart Rate: 80 O2 Saturation: 97 Height: 5 ft 10.5 in Weight: 284 lb 3.2 oz Body Mass Index: 40.1 BMI Classification: Morbidly Obese Impression and Plan 1. Obstructive Sleep Apnea-Hypopnea Syndrome, moderate, with good treatment compliance and good apnea control. On CPAP therapy, the patient has better sleep quality and is more rested overall. Patient has significant improvement of his sleep apnea and is satisfied with current CPAP pressure. He denies any issues or concerns with using the CPAP other than occasional dry mouth or condensation recently. We discussed ways to reduce condensation including turning the hum idity down, heated hose up or putting a hose cover to insulate the tubing to reduce the condensation. He voiced understanding. Patient's apnea severity and rationale for treatment to reduce apnea, improve sleep quality and reduce cardiovascular and cerebrovascular events was reviewed. I also reviewed the benefit of consistent device use of CPAP for diabetes, depression/anxiety, attention deficit. 2. Obesity, unspecified. Currently patients BMI is 40.1. Obesity increases the risk of apnea, CPAP pressure requirements and overall health risks especially cardiovascular and diabetes. Thus patient is advised to lose weight. * Continue auto CPAP pressure at 10-15 cmH2O * Notify me if snoring with mask or feeling that the pressure is too much or too little * Attempt to lose weight * Call this office if any problems using CPAP * Return for follow up in 12 months, or sooner if concerns arise Counseling Topics: Spare mask, Weight loss health impact Follow up with Sleep Care in: 1 year Visit Type: In Office Time Spent with Patient (minutes): 20 Provider Statement: I spent 100% of the Face to Face Visit with the patient with greater than 50% spent counseling the patient and coordination of care.
[2024-06-19 16:52] VITALS: BP 133/85; O2SAT 97
== END 2024-06-19 16:13 | disposition home or self-care (01) ==
LOC: SC 16:12
PROVIDERS: ATTEND Nurse Practitioner Family
DX: G47.33 Obstructive sleep apnea (adult) (pediatric) (principal); E66.01 Morbid (severe) obesity due to excess calories; Z68.41 Body mass index [BMI] 40.0-44.9, adult
CPT/HCPCS: 99212; 99213